=== PATIENT | female | born 1950 | race African-American/Black ===

== ENCOUNTER 2018-11-19 11:05 | Inpatient (IN) | payer OTHER ==
--- NOTE | 2018-11-19 11:13 | PDOC ---
History of Present Illness <Felicita Harrell - Last Filed: 11/19/18 15:06> - History of Present Illness Initial Comments: 11/19/18 11:44 Ms. Trevino is a 68 yo female w/ pmh of GERD, PVD, DMII, HTN, Left sided BKA, ESRD (on dialysis MWF, through R sided fistula, due today) who presents for evaluation of 1 day history of R lower back pain with associated nausea and vomiting. Patient reports she was in her normal state of health yesterday however has had multiple vomiting episodes of clear liquids. Patient still creates urine. Denies any other associated symptom. The patient denies chest pain, shortness of breath, headache and dizziness. Denies fever, chills, diarrhea and constipation. Denies dysuria, frequency, urgency and hematuria. <Pasquale Altamirano - Last Filed: 11/19/18 15:37> - General Stated Complaint: Nausea/Vomiting Time Seen by Provider: 11/19/18 11:12 Past History <Felicita Harrell - Last Filed: 11/19/18 15:06> - Past Medical History Anemia: Yes Diabetes: Yes GI Disorders: Yes HTN: Yes - Suicide/Smoking/Psychosocial Hx Smoking History: Unknown if ever smoked <Pasquale Altamirano - Last Filed: 11/19/18 15:37> - Past Medical History Allergies/Adverse Reactions: Allergies Allergy/AdvReac Type Severity Reaction Status Date / Time cephalexin [From Keflex] Allergy Intermediate Hives Verified 11/19/18 11:43 clindamycin Allergy Intermediate Itching Verified 11/19/18 11:43 gatifloxacin [From Tequin] Allergy Intermediate Hives Verified 11/19/18 11:43 levofloxacin [From Levaquin] Allergy Intermediate Hives Verified 11/19/18 11:43 penicillamine Allergy Intermediate Hives Verified 11/19/18 11:43 vancomycin Allergy Intermediate Hives Verified 11/19/18 11:43 Home Medications: Ambulatory Orders Acetaminophen 650 mg PO ASDIR 11/19/18 Acetaminophen [Tylenol] 650 mg PO QID PRN 11/19/18 Clopidogrel Bisulfate [Plavix] 75 mg PO DAILY 11/19/18 Gentamicin 0.1% Ointment [Garamycin 0.1% Ointment -] 1 applic TP DAILY 11/19/18 Pantoprazole Sodium [Protonix -] 20 mg PO DAILY 11/19/18 Polyethylene Glycol 3350 [Miralax (For Daily Use) -] 17 gm PO DAILY 11/19/18 Review of Systems - Review of Systems Comments:: 11/19/18 12:17 GENERAL/CONSTITUTIONAL: No fever or chills. No weakness. HEAD, EYES, EARS, NOSE AND THROAT: No change in vision. No ear pain or discharge. No sore throat. CARDIOVASCULAR: No chest pain or shortness of breath RESPIRATORY: No cough, wheezing, or hemoptysis. GASTROINTESTINAL: +N/V as described. No diarrhea or constipation. GENITOURINARY: No dysuria, frequency, or change in urination. MUSCULOSKELETAL: No joint or muscle swelling or pain. No neck or back pain. SKIN: No rash NEUROLOGIC: No headache, vertigo, loss of consciousness, or change in strength/ sensation. ENDOCRINE: No increased thirst. No abnormal weight change HEMATOLOGIC/LYMPHATIC: No anemia, easy bleeding, or history of blood clots. ALLERGIC/IMMUNOLOGIC: No hives or skin allergy. <Pasquale Altamirano - Last Filed: 11/19/18 15:37> *Physical Exam - Vital Signs Last Vital Signs Temp Pulse Resp BP Pulse Ox 97.8 F 105 H 16 193/87 H 99 11/19/18 11:44 11/19/18 11:44 11/19/18 11:44 11/19/18 11:44 11/19/18 11:44 <Felicita Harrell - Last Filed: 11/19/18 15:06> - Physical Exam Comments: 11/19/18 12:18 GENERAL: +Patient actively vomiting. Awake, alert, and fully oriented, in no acute distress HEAD: No signs of trauma, normocephalic, atraumatic EYES: PERRLA, EOMI, sclera anicteric, conjunctiva clear ENT: Auricles normal inspection, hearing grossly normal, nares patent, oropharynx clear without exudates. Moist mucosa NECK: Normal ROM, supple, no lymphadenopathy, JVD, or masses LUNGS: No distress, speaks full sentences, clear to auscultation bilaterally HEART: Regular rate and rhythm, normal S1 and S2, no murmurs, rubs or gallops, peripheral pulses normal and equal bilaterally. ABDOMEN: +R flank TTP. Soft, nontender abdomen, normoactive bowel sounds. No guarding, no rebound. No masses EXTREMITIES: Normal inspection, Normal range of motion, no edema. No clubbing or cyanosis. NEUROLOGICAL: Cranial nerves II through XII grossly intact. Normal speech, normal gait, no focal sensorimotor deficits SKIN: Warm, Dry, normal turgor, no rashes or lesions noted. <Pasquale Altamirano - Last Filed: 11/19/18 15:37> ED Treatment Course - LABORATORY CBC & Chemistry Diagram: 11/19/18 12:19 11/19/18 12:19 - ADDITIONAL ORDERS Additional order review: Laboratory Results 11/19/18 11/19/18 11/19/18 12:32 12:23 12:19 Sodium 137 Potassium 3.7 Chloride 98 Carbon Dioxide 26 Anion Gap 13 BUN 38.1 H Creatinine 5.5 H Est GFR (CKD-EPI)AfAm 8.48 Est GFR (CKD-EPI)NonAf 7.31 POC Glucometer 210 Random Glucose 208 H Calcium 9.9 Total Bilirubin 0.4 AST 13 L ALT 11 L Alkaline Phosphatase 138 H Total Protein 8.1 Albumin 3.8 Urine Color Yellow Urine Appearance Clear Urine pH >= 9.0 H Ur Specific [place] 1.011 Urine Protein 3+ H Urine Glucose (UA) Trace Urine Ketones Negative Urine Blood Trace Urine Nitrite Negative Urine Bilirubin Negative Urine Urobilinogen 0.2 Ur Leukocyte Esterase 2+ H Urine WBC (Auto) 16 Urine RBC (Auto) 4 Urine Casts (Auto) 4 U Pathogenic Cast Auto No Result Required. U Epithel Cells (Auto) 7.6 U Sm Round Cell (Auto) None seen Urine Crystals (Auto) No Result Required. Urine Bacteria (Auto) 103.8 Urine Yeast (Auto) No Result Required. 11/19/18 11/19/18 12:23 12:19 RBC 3.31 L MCV 95.2 MCHC 32.9 RDW 17.9 H MPV 8.0 D Neutrophils % 91.0 H D Lymphocytes % 6.2 L D Monocytes % 2.1 L Eosinophils % 0.0 D Basophils % 0.7 POC Glucometer 210 - Medications Given in the ED: ED Medications Discontinued Medications Generic Name Dose Route Start Last Admin Trade Name Freq PRN Reason Stop Dose Admin Acetaminophen 975 mg 11/19/18 12:08 11/19/18 14:48 Tylenol - PO 11/19/18 12:09 Not Given ONCE ONE Sodium Chloride 250 mls @ 1,000 mls/hr 11/19/18 14:29 11/19/18 14:32 Normal Saline - IV 11/19/18 14:43 1,000 mls/hr ASDIR STA Administration Ondansetron HCl 4 mg 11/19/18 12:04 11/19/18 12:35 Zofran Injection IVPUSH 11/19/18 12:05 4 mg ONCE ONE Administration <Felicita Harrell - Last Filed: 11/19/18 15:06> - LABORATORY CBC & Chemistry Diagram: 11/19/18 12:19 11/19/18 12:19 <Pasquale Altamirano - Last Filed: 11/19/18 15:37> Medical Decision Making - Medical Decision Making 11/19/18 15:06 Case d/w Dr. Mckeon via phone, as patient has multiple drug allergies. Recommended one dose of meropenem and monitor patient closely for reaction. He will evaluate as well. <Felicita Harrell - Last Filed: 11/19/18 15:06> - Medical Decision Making 11/19/18 13:09 Ms. Trevino is a 68 yo female w/ pmh as described who presents for evaluation of N/V w/ R flank pain concerning for abdominal process vs. infection vs. ACS. Patient evaluation significant for UTI as below. Given patient's allergies ID consulted regarding ABX administration. Patient will be admitted for ABX and further evaluation. 11/19/18 14:15 ID Paged. 11/19/18 14:29 Discussed patient with Renal who requested 250cc bolus NS and will manage dialysis while in hospital. 11/19/18 15:36 Renal imaging requested by Nephrology to r/o abscess. Order placed for renal US. Laboratory Results - last 24 hr 11/19/18 11/19/18 11/19/18 12:19 12:19 12:23 WBC 9.4 RBC 3.31 L Hgb 10.4 L Hct 31.5 L D MCV 95.2 MCH 31.3 MCHC 32.9 RDW 17.9 H Plt Count 348 D MPV 8.0 D Absolute Neuts (auto) 8.6 H Neutrophils % 91.0 H D Lymphocytes % 6.2 L D Monocytes % 2.1 L Eosinophils % 0.0 D Basophils % 0.7 Nucleated RBC % 0 Sodium 137 Potassium 3.7 Chloride 98 Carbon Dioxide 26 Anion Gap 13 BUN 38.1 H Creatinine 5.5 H Est GFR (CKD-EPI)AfAm 8.48 Est GFR (CKD-EPI)NonAf 7.31 POC Glucometer 210 Random Glucose 208 H Calcium 9.9 Total Bilirubin 0.4 AST 13 L ALT 11 L Alkaline Phosphatase 138 H Total Protein 8.1 Albumin 3.8 Urine Color Urine Appearance Urine pH Ur Specific [place] Urine Protein Urine Glucose (UA) Urine Ketones Urine Blood Urine Nitrite Urine Bilirubin Urine Urobilinogen Ur Leukocyte Esterase Urine WBC (Auto) Urine RBC (Auto) Urine Casts (Auto) U Pathogenic Cast Auto U Epithel Cells (Auto) U Sm Round Cell (Auto) Urine Crystals (Auto) Urine Bacteria (Auto) Urine Yeast (Auto) 11/19/18 12:32 WBC RBC Hgb Hct MCV MCH MCHC RDW Plt Count MPV Absolute Neuts (auto) Neutrophils % Lymphocytes % Monocytes % Eosinophils % Basophils % Nucleated RBC % Sodium Potassium Chloride Carbon Dioxide Anion Gap BUN Creatinine Est GFR (CKD-EPI)AfAm Est GFR (CKD-EPI)NonAf POC Glucometer Random Glucose Calcium Total Bilirubin AST ALT Alkaline Phosphatase Total Protein Albumin Urine Color Yellow Urine Appearance Clear Urine pH >= 9.0 H Ur Specific [place] 1.011 Urine Protein 3+ H Urine Glucose (UA) Trace Urine Ketones Negative Urine Blood Trace Urine Nitrite Negative Urine Bilirubin Negative Urine Urobilinogen 0.2 Ur Leukocyte Esterase 2+ H Urine WBC (Auto) 16 Urine RBC (Auto) 4 Urine Casts (Auto) 4 U Pathogenic Cast Auto No Result Required. U Epithel Cells (Auto) 7.6 U Sm Round Cell (Auto) None seen Urine Crystals (Auto) No Result Required. Urine Bacteria (Auto) 103.8 Urine Yeast (Auto) No Result Required. <Pasquale Altamirano - Last Filed: 11/19/18 15:37> *DC/Admit/Observation/Transfer <Felicita Harrell - Last Filed: 11/19/18 15:06> - Discharge Dispostion Decision to Admit order: Yes <Pasquale Altamirano - Last Filed: 11/19/18 15:37> Diagnosis at time of Disposition: UTI (urinary tract infection) Qualifiers: Urinary tract infection type: site unspecified Hematuria presence: without hematuria Qualified Code(s): N39.0 - Urinary tract infection, site not specified
[2018-11-19] MEDS ORDERED: ONDANSETRON 4 MG/2 ML VIAL IVPUSH ONE (12:04)
[2018-11-19] MEDS ORDERED: ACETAMINOPHEN 500 MG TABLET (FP) PO ONE (12:08)
[2018-11-19] MEDS ORDERED: ACETAMINOPHEN 325 MG TABLET (FP) ONE ×2 (12:28→14:34)
[2018-11-19] MEDS ORDERED: ONDANSETRON 4 MG/2 ML VIAL ONE (12:28)
--- NOTE | 2018-11-19 12:29 | PDOC ---
Documentation entered by Deepa Eduardo SCRIBE, acting as scribe for Felicita Harrell MD. Felicita Harrell MD: This documentation has been prepared by the Jayce nguyen Mackenzie, SCRIBE, under my direction and personally reviewed by me in its entirety. I confirm that the documentation accurately reflects all work , treatment, procedures, and medical decision making performed by me. Attending Attestation - Resident Resident Name: EveliaJuan FPasquale - ED Attending Attestation I have performed the following: I have examined & evaluated the patient, The case was reviewed & discussed with the resident, I agree w/resident's findings & plan, Exceptions are as noted - HPI HPI: 68 yo F history GERD, PVD, DM, HTN, ESRD on HD MWF (missed session today) presents with 1 day history of R low back pain with nausea and vomiting. She denies any recent illness, fevers. Vomited multiple times today, clear fluid, nonbilious, nonbloody. - Physicial Exam PE: GENERAL: Awake, alert, and fully oriented, in no acute distress HEAD: No signs of trauma EYES: PERRLA, EOMI, sclera anicteric, conjunctiva clear ENT: Auricles normal inspection, hearing grossly normal, nares patent, oropharynx clear without exudates. Dry mucosa NECK: Normal ROM, supple, no lymphadenopathy, JVD, or masses LUNGS: Breath sounds equal, clear to auscultation bilaterally. No wheezes, and no crackles HEART: Regular rate and rhythm, normal S1 and S2, no murmurs, rubs or gallops ABDOMEN: Soft, nontender, normoactive bowel sounds. No guarding, no rebound. No masses EXTREMITIES: R foot is s/p amputations of toes 1 and 5, well-healed. LLE s/p AKA , well-healed. Remainder of extremities with normal range of motion, no edema. No clubbing or cyanosis. No cords, erythema, or tenderness NEUROLOGICAL: Cranial nerves II through XII grossly intact. Normal speech. Motor and sensation intact SKIN: Warm, Dry, normal turgor, no rashes or lesions noted. - Medical Decision Making Pt with history of ESRD on HD presenting with vomiting. Abd is soft and nontender, however, patient with flank tenderness on R. Afebrile in ED, but appears dehydrated. Will check labs, UA, BGM. Will give antiemetics. If UA is negative, will obtain CT a/p to further evaluate.
[2018-11-19 12:46] LABS: BASO % 0.7 % (0-2.0); HEMATOCRIT 31.5 % (32.4-45.2); HEMOGLOBIN 10.4 GM/dL (10.7-15.3); LYMPH % 6.2 % (8-40); MCH 31.3 pg (25.7-33.7); MCHC 32.9 g/dl (32.0-36.0); MEAN CELL VOLUME 95.2 fl (80-96); MONO % 2.1 % (3.8-10.2); PLATELET COUNT 348 K/MM3 (134-434); RBC 3.31 M/mm3 (3.60-5.2); RDW 17.9 % (11.6-15.6); WHITE BLOOD COUNT 9.4 K/mm3 (4.0-10.0)
[2018-11-19 12:57] LABS: EPI CELLS 7.6 /HPF (0-5/HPF); HYALINE CASTS 4 /lpf (0-8); PH,URINE >= 9.0 (5.0-8.0); URINE APPEARANCE CLEAR; URINE BACTERIA 103.8 /hpf (NEGATIVE); URINE BILIRUBIN NEGATIVE (NEGATIVE); URINE COLOR YELLOW; URINE GLUCOSE (UA) TRACE (NEGATIVE); URINE KETONE NEGATIVE (NEGATIVE); URINE LEUK ESTERASE 2+ (NEGATIVE); URINE NITRITE NEGATIVE (NEGATIVE); URINE PROTEIN 3+ (NEGATIVE); URINE RBC 4 /hpf (0-4); URINE UROBILINOGEN 0.2 mg/dL (0.2-1.0); URINE WBC 16 /hpf (0-5)
[2018-11-19 13:04] LABS: ALBUMIN 3.8 g/dl (3.4-5.0); BILIRUBIN,TOTAL 0.4 mg/dL (0.2-1); BLOOD UREA NITROGEN 38.1 mg/dL (7-18); CALCIUM 9.9 mg/dL (8.5-10.1); CREATININE 5.5 mg/dL (0.55-1.3); POTASSIUM 3.7 mmol/L (3.5-5.1); TOT PROT 8.1 g/dl (6.4-8.2)
[2018-11-19 13:20] LABS: ANISOCYTOSIS 1+; MACROCYTOSIS 1+; PLATELET ESTIMATE NORMAL
[2018-11-19] MEDS ORDERED: SODIUM CHLORIDE 250 ML IV STA (14:29)
[2018-11-19] MEDS ORDERED: MEROPENEM 1 GM in DEXTROSE 5%-WATER 100 ML IVPB ONE (15:05)
[2018-11-19] MEDS ORDERED: MEROPENEM 1 GM VIAL (RESTRICTED TO ID) IVPB ONE (15:21)
--- NOTE | 2018-11-19 15:38 | CONSULT ---
Consult Consult Specialty:: Nephrology Reason for Consultation:: ESRD - History of Present Illness Chief Complaint: right lower back pain History of Present Illness: Pt is a 68 year old female with pmhx of GERD, ESRD, PVD, left bka, and DM who presents to the ER with right lower back pain. She also complains of nausea and vomiting. She last went to HD on Thursday. She denies shortness of breath. She says that she feels dehydrated and has not eaten much. She does make urine. She denies sick contacts. - History Source History Provided By: Patient, Medical Record - Past Medical History Cardio/Vascular: Yes: HTN Renal/: Yes: Renal Failure, Hemodialysis Endocrine: Yes: Diabetes Mellitus - Past Surgical History Past Surgical History: Yes: AV Fistula/Graft - Smoking History Smoking history: Unknown if ever smoked Home Medications - Allergies Allergies/Adverse Reactions: Allergies Allergy/AdvReac Type Severity Reaction Status Date / Time cephalexin [From Keflex] Allergy Intermediate Hives Verified 11/19/18 11:43 clindamycin Allergy Intermediate Itching Verified 11/19/18 11:43 gatifloxacin [From Tequin] Allergy Intermediate Hives Verified 11/19/18 11:43 levofloxacin [From Levaquin] Allergy Intermediate Hives Verified 11/19/18 11:43 penicillamine Allergy Intermediate Hives Verified 11/19/18 11:43 vancomycin Allergy Intermediate Hives Verified 11/19/18 11:43 - Home Medications Home Medications: Ambulatory Orders Acetaminophen 650 mg PO ASDIR 11/19/18 Acetaminophen [Tylenol] 650 mg PO QID PRN 11/19/18 Clopidogrel Bisulfate [Plavix] 75 mg PO DAILY 11/19/18 Gentamicin 0.1% Ointment [Garamycin 0.1% Ointment -] 1 applic TP DAILY 11/19/18 Pantoprazole Sodium [Protonix -] 20 mg PO DAILY 11/19/18 Polyethylene Glycol 3350 [Miralax (For Daily Use) -] 17 gm PO DAILY 11/19/18 Family Disease History - Family Disease History Family History: Denies Review of Systems - Review of Systems Constitutional: reports: Chills, Malaise Eyes: reports: No Symptoms HENT: reports: No Symptoms Neck: reports: No Symptoms Cardiovascular: reports: No Symptoms Respiratory: reports: No Symptoms Gastrointestinal: reports: No Symptoms Genitourinary: denies: Burning Musculoskeletal: reports: Back Pain Neurological: reports: No Symptoms Endocrine: reports: No Symptoms Hematology/Lymphatic: reports: No Symptoms Psychiatric: reports: No Symptoms Physical Exam Vital Signs: Vital Signs Temperature 97.8 F 11/19/18 11:44 Pulse Rate 105 H 11/19/18 11:44 Respiratory Rate 16 11/19/18 11:44 Blood Pressure 193/87 H 11/19/18 11:44 O2 Sat by Pulse Oximetry (%) 99 11/19/18 11:44 Constitutional: Yes: Calm Eyes: Yes: Conjunctiva Clear HENT: Yes: Atraumatic Neck: Yes: Supple Cardiovascular: Yes: S1, S2 Respiratory: Yes: CTA Bilaterally Gastrointestinal: Yes: Soft Renal/: Yes: WNL Musculoskeletal: Yes: Other (left bka) Edema: No Integumentary: Yes: WNL Neurological: Yes: Oriented Psychiatric: Yes: Oriented Labs: CBC, BMP 11/19/18 12:19 11/19/18 12:19 Microbiology Laboratory Tests 11/19/18 11/19/18 12:19 12:32 Sodium 137 Potassium 3.7 BUN 38.1 H Creatinine 5.5 H Ur Leukocyte Esterase 2+ H Problem List - Problems (1) ESRD (end stage renal disease) Code(s): N18.6 - END STAGE RENAL DISEASE (2) UTI (urinary tract infection) Code(s): N39.0 - URINARY TRACT INFECTION, SITE NOT SPECIFIED Qualifiers: Urinary tract infection type: site unspecified Hematuria presence: without hematuria Qualified Code(s): N39.0 - Urinary tract infection, site not specified Assessment/Plan Impression 1. ESRD 2. DM 3. HTN 4. UTI 5. left bka 6. PVD Plan - send urine and blood cultures - ID eval for abs - give 250 bolus of saline - hold off HD today - will dialyze tomorrow - HD 3:15 avf heparin 200 - will need imaging, spoke to er - resume home bp meds and monitor bp
[2018-11-19] MEDS ORDERED: SODIUM CHLORIDE 250 ML IV PRN (15:41)
[2018-11-19 17:58] VITALS: BMI 26.9
[2018-11-19] MEDS: hydrALAZINE HCL 25 MG TABLET (FP) PO SCH (22:09)
[2018-11-19] MEDS: HEPARIN NA (PORCINE) 5,000 UNITS/ML 1ML VIAL SQ SCH (22:09)
--- NOTE | 2018-11-20 02:09 | HOSP ---
Subjective - Review of Symptoms Events since last encounter: Patient noted with bp of 204/96 ( patient takes Amlodipine 10 mg daily and Hydralazine 25 mg TID home meds, however patient did not take any medication due to vomiting) as per floor RN hydralazine 25 mg was given at 2200, will give another dose of hydralazine 25 mg x1, monitor vitals closely. Gen:NAD Cardio: S1/S2 Resp: CTA b/l Adb: soft, NT/ND Neuro: awake,alert A/P HTN -given extra dose of hydralazine 25 mg x1 - monitor vitals closely Subjective: Elevated bp General: Yes: Chills HEENT: No: Head Aches, Visual Changes, Eye Pain, Ear Pain, Dysphasia, Sinus Congestion, Post Nasal Drip, Sore Throat, Other Pulmonary: No: Dyspnea, Cough, Pleuritic Chest Pain, Other Cardiovascular: No: Chest Pain, Palpitations, Orthopnea, Paroxysmal Noc. Dyspnea , Edema, Light Headedness, Other Gastrointestinal: No: Nausea, NOSYM, Vomiting, Abdominal Pain, Diarrhea, Constipation, Melena, Hematochezia, Other Genitourinary: No: Dysuria, NOSYM, Frequency, Incontinence, Hematuria, Retention , Other Musculoskeletal: No: No Symptoms, Back Pain, Crepitus, Decreased ROM, Extremity Pain, Joint Pain, Joint Swelling, Muscle Pain, Muscle Cramps, Muscle Weakness, Other Neurological: No: Weakness, Numbness, Incoordination, Change in speech, Confusion, Seizures, Other Physical Examination Vital Signs: Vital Signs Temperature 98.4 F 11/20/18 01:00 Pulse Rate 105 H 11/20/18 01:00 Respiratory Rate 24 H 11/20/18 01:00 Blood Pressure 207/93 H 11/20/18 01:00 O2 Sat by Pulse Oximetry (%) 96 11/19/18 21:00 Constitutional: Yes: No Distress Eyes: Yes: Conjunctiva Clear, EOM Intact HENT: Yes: Atraumatic, Normocephalic Neck: Yes: WNL, Supple Cardiovascular: Yes: WNL, Regular Rate and Rhythm Respiratory: Yes: WNL, Regular Gastrointestinal: Yes: WNL, Normal Bowel Sounds Musculoskeletal: Yes: WNL Extremities: Yes: WNL Labs: CBC, BMP 11/19/18 12:19 11/19/18 12:19 Hospitalist Encounter Assessment: HTN - give extra dose of hydralazine 25 mg x1 - monitor vitals closely
[2018-11-20] MEDS ORDERED: hydrALAZINE HCL 25 MG TABLET (FP) PO ONE ×2 (04:16→09:22)
[2018-11-20] MEDS: hydrALAZINE HCL 25 MG TABLET (FP) PO SCH ×2 (05:35→13:28)
[2018-11-20] MEDS ORDERED: PT OWN MED DRAWER 7, Y5N ONE ×2 (06:30→18:30)
--- NOTE | 2018-11-20 09:21 | CON.GI ---
Consult Consult Specialty:: GI Referred by:: Dr. Vlad Laws Reason for Consultation:: Nausea/vomiting - History of Present Illness Chief Complaint: nausea, vomiting, dizziness History of Present Illness: 68F admitted through [facility] ER from rehab (S/P Lt. AKA 08/10 and awaiting refitting for prosthesis) for evaluation of nausea and vomiting. Ms. Plasencia explains that she was in her USOH up until yesterday when she began experiencing episodes of nausea, and retching/vomiting (non bilious, non projectile). She was told of her blood pressure being elevated at rehab and it has been significantly elevated during this admission. She denies associated abdominal pain, diarrhea, rectal bleeding, melena. She describes chills and thinks she may have been told of a fever at rehab. She has been afebrile since she has been here. Along with her nausea she complains of dizziness (her head spinning, especially when she sits up or stands up) and blurring of her vision. She denies any change to her medication regimen. She believes that she had a colonoscopy at [facility] last year that was "OK". There is no family history of colorectal cancer or other GI malignancy. - History Source History Provided By: Patient - Past Medical History Cardio/Vascular: Yes: HTN Renal/: Yes: Renal Failure, Hemodialysis (M/W/F) ...: No Endocrine: Yes: Diabetes Mellitus (DM II) - Past Surgical History Past Surgical History: Yes: AV Fistula/Graft (Left arm), (x 1) - Alcohol/Substance Use Hx Alcohol Use: No History of Substance Use: reports: None - Smoking History Smoking history: Never smoked Have you smoked in the past 12 months: No - Social History Usual Living Arrangement: With Spouse ADL: Independent Occupation: on Disability Place of : Other ([employer]) Came to [place]year[place] Age 15 History of Recent Travel: No Home Medications - Allergies Allergies/Adverse Reactions: Allergies Allergy/AdvReac Type Severity Reaction Status Date / Time cephalexin [From Keflex] Allergy Intermediate Hives Verified 11/19/18 11:43 clindamycin Allergy Intermediate Itching Verified 11/19/18 11:43 gatifloxacin [From Tequin] Allergy Intermediate Hives Verified 11/19/18 11:43 levofloxacin [From Levaquin] Allergy Intermediate Hives Verified 11/19/18 11:43 penicillamine Allergy Intermediate Hives Verified 11/19/18 11:43 vancomycin Allergy Intermediate Hives Verified 11/19/18 11:43 - Home Medications Home Medications: Ambulatory Orders Acetaminophen 650 mg PO ASDIR 11/19/18 Acetaminophen [Tylenol] 650 mg PO QID PRN 11/19/18 Amlodipine Besylate 10 mg PO DAILY 11/19/18 Clopidogrel Bisulfate [Plavix] 75 mg PO DAILY 11/19/18 Gentamicin 0.1% Ointment [Garamycin 0.1% Ointment -] 1 applic TP DAILY 11/19/18 Hydralazine HCl 25 mg PO TID 11/19/18 Pantoprazole Sodium [Protonix -] 20 mg PO DAILY 11/19/18 Polyethylene Glycol 3350 [Miralax (For Daily Use) -] 17 gm PO DAILY 11/19/18 Renvela - 1,600 mg PO TID 11/19/18 Family Disease History - Family Disease History Family Disease History: Other: Father (: 84: HTN complications), Mother ( : 86: HTN complications), Brother (1, healthy), Sister (1, healthy), Son (1 , healthy) Other Family History: No family history of colorectal cancer or other GI malignancy Review of Systems - Review of Systems Constitutional: reports: Chills, Fever (states having had fever at rehab) Eyes: reports: Blurred Vision Cardiovascular: denies: Chest Pain Respiratory: denies: Cough, SOB Gastrointestinal: reports: Nausea, Vomiting. denies: Abdominal Pain, Bloating, Constipation, Diarrhea, Dysphagia, Melena, Rectal Bleeding, Vomiting Blood Physical Exam-GI Vital Signs: Vital Signs Temperature 98.1 F 11/20/18 09:30 Pulse Rate 102 H 11/20/18 09:30 Respiratory Rate 20 H 11/20/18 09:30 Blood Pressure 213/92 H 11/20/18 09:30 O2 Sat by Pulse Oximetry (%) 96 11/19/18 09:30 Constitutional: Yes: Calm Eyes: No: Sclera Icterus Cardiovascular: Yes: Tachycardia. No: Murmur Respiratory: Yes: CTA Bilaterally Gastrointestinal Inspection: Yes: Scars (low pelvic surgical scar) ...Auscultate: Yes: Normoactive Bowel Sounds ...Palpate: Yes: Soft. No: Hepatomegaly, Splenomegaly, Tenderness ...Percussion: No: Tympanitic ...Rectal Exam: Yes: Other (No external lesions, no masses, copious enriquez stool in rectal vault, guaiac negative) Extremities: Yes: Other (Left AKA) Edema: No (No RLE edema) Neurological: Yes: Alert, Oriented Labs: CBC, BMP 11/19/18 12:19 11/19/18 12:19 Hepatic Panel Total Bilirubin 0.4 mg/dL (0.2-1) 11/19/18 12:19 AST 13 U/L (15-37) L 11/19/18 12:19 ALT 11 U/L (13-61) L 11/19/18 12:19 Alkaline Phosphatase 138 U/L (45-117) H 11/19/18 12:19 Albumin 3.8 g/dl (3.4-5.0) 11/19/18 12:19 Problem List - Problems (1) Nausea & vomiting Assessment/Plan: No focal findings on abdominal exam Suspect her nausea / vomiting may be secondary to her uncontrolled hypertension. Advised: Patient be transferred to telemetry or ICU setting and have blood pressure controlled Needs evaluation of complaints of bluured visin and dizziness. Hopefully this improves with better control of her blood pressure Further evaluation of UTI diagnosis Zofran was ordered by PMD Ordered AXR (bedside) Code(s): R11.2 - NAUSEA WITH VOMITING, UNSPECIFIED
--- NOTE | 2018-11-20 09:26 | RAPID ---
Physical Examination Vital Signs: Vital Signs Temperature 98.5 F 11/20/18 06:00 Pulse Rate 107 H 11/20/18 06:00 Respiratory Rate 22 H 11/20/18 06:00 Blood Pressure 194/85 H 11/20/18 06:00 O2 Sat by Pulse Oximetry (%) 96 11/19/18 21:00 Findings/Remarks: Rapid Response called overhead as pt found to have a BP of 190/95 with blurry vision. P.E AAOx3 NC/AT CTAB Sinus Tachy NDNT No Lower extremity edema. L BKA Plan: One time dose Hydralazine 25. Procardia 30 per PMD. Zofran. Monitor BP closely-Transfer to Tele PMD contacted and Aware Labs: CBC, BMP 11/19/18 12:19 11/19/18 12:19
[2018-11-20] MEDS: ONDANSETRON 4 MG/2 ML VIAL IVPUSH PRN ×2 (09:31→22:16)
[2018-11-20] MEDS ORDERED: NIFEdipine E.R. 30 MG TABLET (FP) PO ONE (09:45)
[2018-11-20] MEDS ORDERED: amLODIPine BESYLATE 10 MG TABLET (FP) PO SCH (10:00)
[2018-11-20] MEDS ORDERED: POLYETHYLENE GLYCOL 3350 119 GM BTL PO SCH (10:00)
[2018-11-20] MEDS: HEPARIN NA (PORCINE) 5,000 UNITS/ML 1ML VIAL SQ SCH ×2 (10:57→22:14)
[2018-11-20] MEDS: PANTOPRAZOLE 20 MG TABLET (FP) PO SCH (10:57)
[2018-11-20] MEDS: CLOPIDOGREL BISULFATE 75 MG TABLET (FP) PO SCH (10:57)
--- NOTE | 2018-11-20 12:44 | PN ---
Progress Note, Physician History of Present Illness: Pt seen and examined at bedside. She is awake and alert. She says that she feels much better. She denies shortness of breath. She denies nausea or vomiting. - Current Medication List Current Medications: Active Medications Clopidogrel Bisulfate (Plavix -) 75 mg PO DAILY [facility] Last Admin: 11/20/18 10:57 Dose: 75 mg Heparin Sodium (Porcine) (Heparin -) 2,000 unit IVPUSH ONCE ONE Stop: 11/20/18 15:42 Heparin Sodium (Porcine) (Heparin -) 5,000 unit SQ BID [facility] Last Admin: 11/20/18 10:57 Dose: 5,000 unit Hydralazine HCl (Apresoline -) 25 mg PO TID [facility] Last Admin: 11/20/18 05:35 Dose: 25 mg Sodium Chloride (Normal Saline -) 250 mls @ 3,000 mls/hr IV PRN PRN PRN Reason: Hypotension during Dialysis Stop: 11/20/18 15:41 Ondansetron HCl (Zofran Injection) 4 mg IVPUSH Q6H PRN PRN Reason: NAUSEA AND/OR VOMITING Last Admin: 11/20/18 09:31 Dose: 4 mg Pantoprazole Sodium (Protonix -) 20 mg PO DAILY [facility] Last Admin: 11/20/18 10:57 Dose: 20 mg Polyethylene Glycol (Miralax (For Daily Use) -) 17 gm PO DAILY [facility] Last Admin: 11/20/18 09:50 Dose: Not Given - Objective Vital Signs: Vital Signs Temperature 98.5 F 11/20/18 06:00 Pulse Rate 100 H 11/20/18 10:15 Respiratory Rate 18 11/20/18 10:15 Blood Pressure 162/74 11/20/18 10:15 O2 Sat by Pulse Oximetry (%) 96 11/20/18 09:00 Constitutional: Yes: Calm Eyes: Yes: Conjunctiva Clear HENT: Yes: Atraumatic Neck: Yes: Supple Cardiovascular: Yes: S1, S2 Respiratory: Yes: CTA Bilaterally Gastrointestinal: Yes: Normal Bowel Sounds, Soft Genitourinary: Yes: WNL Musculoskeletal: Yes: Other (bka) Edema: No Integumentary: Yes: WNL Neurological: Yes: Oriented Psychiatric: Yes: Oriented Labs: CBC, BMP 11/19/18 12:19 11/19/18 12:19 Problem List - Problems (1) ESRD (end stage renal disease) Code(s): N18.6 - END STAGE RENAL DISEASE (2) UTI (urinary tract infection) Code(s): N39.0 - URINARY TRACT INFECTION, SITE NOT SPECIFIED Qualifiers: Urinary tract infection type: site unspecified Hematuria presence: without hematuria Qualified Code(s): N39.0 - Urinary tract infection, site not specified Assessment/Plan Current Medications Generic Name Dose Route Start Last Admin Trade Name Freq PRN Reason Stop Dose Admin Clopidogrel Bisulfate 75 mg 11/20/18 10:00 11/20/18 10:57 Plavix - PO 75 mg DAILY [facility] Administration Heparin Sodium (Porcine) 2,000 unit 11/20/18 15:41 Heparin - IVPUSH 11/20/18 15:42 ONCE ONE Heparin Sodium (Porcine) 5,000 unit 11/19/18 22:00 11/20/18 10:57 Heparin - SQ 5,000 unit BID [facility] Administration Hydralazine HCl 25 mg 11/19/18 22:00 11/20/18 05:35 Apresoline - PO 25 mg TID [facility] Administration Sodium Chloride 250 mls @ 3,000 mls/hr 11/19/18 15:41 Normal Saline - IV 11/20/18 15:41 PRN PRN Hypotension during Dialysis Ondansetron HCl 4 mg 11/20/18 05:34 11/20/18 09:31 Zofran Injection IVPUSH 4 mg Q6H PRN Administration NAUSEA AND/OR VOMITING Pantoprazole Sodium 20 mg 11/20/18 10:00 11/20/18 10:57 Protonix - PO 20 mg DAILY [facility] Administration Polyethylene Glycol 17 gm 11/20/18 10:00 11/20/18 09:50 Miralax (For Daily Use) - PO Not Given DAILY [facility] Impression 1. ESRD 2. DM 3. HTN 4. UTI 5. left bka 6. PVD Plan - HD today - cont hydralazine and monitor bp - follow cultures - abd per ID - follow renal ultrasound - HD 3:15 avf heparin 2000
--- NOTE | 2018-11-20 13:36 | CON.ID ---
Consult Consult Specialty:: infectious diseases - Past Medical History Cardio/Vascular: Yes: HTN Renal/: Yes: Renal Failure, Hemodialysis (M/W/F) ...: No Endocrine: Yes: Diabetes Mellitus (DM II) - Past Surgical History Past Surgical History: Yes: AV Fistula/Graft (Left arm), (x 1) - Alcohol/Substance Use Hx Alcohol Use: No History of Substance Use: reports: None - Smoking History Smoking history: Never smoked Have you smoked in the past 12 months: No - Social History Usual Living Arrangement: With Spouse ADL: Independent Occupation: on Disability History of Recent Travel: No Home Medications - Allergies Allergies/Adverse Reactions: Allergies Allergy/AdvReac Type Severity Reaction Status Date / Time cephalexin [From Keflex] Allergy Intermediate Hives Verified 11/19/18 11:43 clindamycin Allergy Intermediate Itching Verified 11/19/18 11:43 gatifloxacin [From Tequin] Allergy Intermediate Hives Verified 11/19/18 11:43 levofloxacin [From Levaquin] Allergy Intermediate Hives Verified 11/19/18 11:43 penicillamine Allergy Intermediate Hives Verified 11/19/18 11:43 vancomycin Allergy Intermediate Hives Verified 11/19/18 11:43 - Home Medications Home Medications: Ambulatory Orders Acetaminophen 650 mg PO ASDIR 11/19/18 Acetaminophen [Tylenol] 650 mg PO QID PRN 11/19/18 Amlodipine Besylate 10 mg PO DAILY 11/19/18 Clopidogrel Bisulfate [Plavix] 75 mg PO DAILY 11/19/18 Gentamicin 0.1% Ointment [Garamycin 0.1% Ointment -] 1 applic TP DAILY 11/19/18 Hydralazine HCl 25 mg PO TID 11/19/18 Pantoprazole Sodium [Protonix -] 20 mg PO DAILY 11/19/18 Polyethylene Glycol 3350 [Miralax (For Daily Use) -] 17 gm PO DAILY 11/19/18 Renvela - 1,600 mg PO TID 11/19/18 Family Disease History - Family Disease History Family Disease History: Other: Father (: 84: HTN complications), Mother ( : 86: HTN complications), Brother (1, healthy), Sister (1, healthy), Son (1 , healthy) Other Family History: No family history of colorectal cancer or other GI malignancy Physical Exam Vital Signs: Vital Signs Temperature 98.5 F 11/20/18 06:00 Pulse Rate 100 H 11/20/18 10:15 Respiratory Rate 18 11/20/18 10:15 Blood Pressure 162/74 11/20/18 10:15 O2 Sat by Pulse Oximetry (%) 96 11/20/18 09:00 Labs: CBC, BMP 11/19/18 12:19 11/19/18 12:19
[2018-11-20 15:10] LABS: HEMATOCRIT 32.6 % (32.4-45.2); HEMOGLOBIN 10.7 GM/dL (10.7-15.3); MCH 31.1 pg (25.7-33.7); MCHC 32.7 g/dl (32.0-36.0); MEAN PLT VOLUME 7.8 fl (7.5-11.1); RBC 3.43 M/mm3 (3.60-5.2); RDW 18.4 % (11.6-15.6); WHITE BLOOD COUNT 12.1 K/mm3 (4.0-10.0)
[2018-11-20] MEDS ORDERED: ACETAMINOPHEN 325 MG TABLET (FP) PO PRN (15:13)
--- NOTE | 2018-11-20 15:14 | HP ---
Admitting History and Physical - Primary Care Physician PCP: Mason Laws - Admission History of Present Illness: pt seen/ examined chart reviewed events noted Ms. Trevino is a 68 yo female w/ pmh of GERD, PVD, DMII, HTN, Left sided BKA, ESRD (on dialysis MWF, through R sided fistula, due today) who presents for evaluation of 1 day history of R lower back pain with associated nausea and vomiting. pt transferred to [facility] earlier today - I had spoken to and discussed with Rn-- pt had uncontrolled htn and persistant n/v Meds adjusted Better [facility] also consulted pt currently being dialized feels much better History Source: Patient, Medical Record - Past Medical History Cardiovascular: Yes: HTN Renal/: Yes: Renal Failure, Hemodialysis (M/W/F) ...: No Endocrine: Yes: Diabetes Mellitus (DM II) - Past Surgical History Past Surgical History: Yes: AV Fistula/Graft (Left arm), (x 1) - Smoking History Smoking history: Never smoked Have you smoked in the past 12 months: No - Alcohol/Substance Use Hx Alcohol Use: No History of Substance Use: reports: None - Social History ADL: Independent Occupation: on Disability History of Recent Travel: No Home Medications - Allergies Allergies/Adverse Reactions: Allergies Allergy/AdvReac Type Severity Reaction Status Date / Time cephalexin [From Keflex] Allergy Intermediate Hives Verified 11/19/18 11:43 clindamycin Allergy Intermediate Itching Verified 11/19/18 11:43 gatifloxacin [From Tequin] Allergy Intermediate Hives Verified 11/19/18 11:43 levofloxacin [From Levaquin] Allergy Intermediate Hives Verified 11/19/18 11:43 penicillamine Allergy Intermediate Hives Verified 11/19/18 11:43 vancomycin Allergy Intermediate Hives Verified 11/19/18 11:43 - Home Medications Home Medications: Ambulatory Orders Acetaminophen 650 mg PO ASDIR 11/19/18 Acetaminophen [Tylenol] 650 mg PO QID PRN 11/19/18 Amlodipine Besylate 10 mg PO DAILY 11/19/18 Clopidogrel Bisulfate [Plavix] 75 mg PO DAILY 11/19/18 Gentamicin 0.1% Ointment [Garamycin 0.1% Ointment -] 1 applic TP DAILY 11/19/18 Hydralazine HCl 25 mg PO TID 11/19/18 Pantoprazole Sodium [Protonix -] 20 mg PO DAILY 11/19/18 Polyethylene Glycol 3350 [Miralax (For Daily Use) -] 17 gm PO DAILY 11/19/18 Renvela - 1,600 mg PO TID 11/19/18 Family Disease History - Family Disease History Family Disease History: Other: Father (: 84: HTN complications), Mother ( : 86: HTN complications), Brother (1, healthy), Sister (1, healthy), Son (1 , healthy) Other Family History: No family history of colorectal cancer or other GI malignancy Review of Systems - Review of Systems Constitutional: reports: Malaise, Weakness Eyes: reports: No Symptoms HENT: reports: No Symptoms Neck: reports: No Symptoms Cardiovascular: reports: No Symptoms Respiratory: reports: No Symptoms Gastrointestinal: reports: Nausea, Vomiting Neurological: reports: No Symptoms Psychiatric: reports: No Symptoms Physical Examination Vital Signs: Vital Signs Temperature 98.5 F 11/20/18 14:53 Pulse Rate 101 H 11/20/18 15:00 Respiratory Rate 20 11/20/18 15:00 Blood Pressure 163/89 11/20/18 15:00 O2 Sat by Pulse Oximetry (%) 96 11/20/18 09:00 Constitutional: Yes: No Distress, Calm Eyes: Yes: Conjunctiva Clear Neck: Yes: Supple Cardiovascular: Yes: Regular Rate and Rhythm Respiratory: Yes: Diminished Gastrointestinal: Yes: Soft Extremities: Yes: Amputation Edema: No Neurological: Yes: Alert Psychiatric: Yes: Alert Imaging - Results X-ray: Report Reviewed Problem List - Problems (1) Hypertensive urgency Code(s): I16.0 - HYPERTENSIVE URGENCY (2) ESRD (end stage renal disease) Code(s): N18.6 - END STAGE RENAL DISEASE (3) Nausea & vomiting Code(s): R11.2 - NAUSEA WITH VOMITING, UNSPECIFIED Assessment/Plan Monitor on tele Being dialize Adjust BP Meds discussed with pt Will follow
[2018-11-20] MEDS ORDERED: ACETAMINOPHEN 325 MG TABLET (FP) PO SCH (15:15)
[2018-11-20 15:20] LABS: BLOOD UREA NITROGEN 48.2 mg/dL (7-18); CALCIUM 9.5 mg/dL (8.5-10.1); CREATININE 6.8 mg/dL (0.55-1.3); POTASSIUM 4.1 mmol/L (3.5-5.1)
[2018-11-20 15:23] LABS: PLATELET COUNT 342 K/MM3 (134-434)
[2018-11-20] MEDS ORDERED: HEPARIN NA (PORCINE) 5,000 UNITS/ML 1ML VIAL IVPUSH ONE (15:41)
[2018-11-20] MEDS: SEVELAMER CARBONATE 800 MG TAB (FP) PO SCH (18:11)
[2018-11-20] MEDS: MEROPENEM 500 MG in DEXTROSE 5%-WATER - 100 ML IVPB SCH (19:42)
[2018-11-20 19:43] LABS: BLOOD UREA NITROGEN 10.7 mg/dL (7-18); CREATININE 2.1 mg/dL (0.55-1.3)
[2018-11-20] MEDS ORDERED: hydrALAZINE HCL 25 MG TABLET (FP) PO SCH (22:00)
[2018-11-21] MEDS ORDERED: hydrALAZINE HCL 25 MG TABLET (FP) PO ONE (02:27)
[2018-11-21] MEDS: ONDANSETRON 4 MG/2 ML VIAL IVPUSH PRN ×2 (02:41→20:10)
[2018-11-21] MEDS ORDERED: PT OWN MED DRAWER 7, Y5N ONE ×3 (06:08→17:19)
[2018-11-21] MEDS: hydrALAZINE HCL 50 MG TABLET (FP) PO SCH ×3 (06:20→21:59)
[2018-11-21] MEDS: SEVELAMER CARBONATE 800 MG TAB (FP) PO SCH ×3 (08:32→17:12)
--- NOTE | 2018-11-21 09:06 | PN.GI ---
GI Progress Note Subjective: No acute events BP still labile. elevated this morning She states feeling better after dialysis yesterday AXR revealed fecal retention (patient stated yesterday she has been having daily BM's) Tolerated tea this morning. Overall states feeling a little better - Objective Vital Signs: Vital Signs Temperature 98.7 F 11/21/18 05:00 Pulse Rate 109 H 11/21/18 05:00 Respiratory Rate 21 H 11/21/18 05:00 Blood Pressure 192/93 H 11/21/18 05:00 O2 Sat by Pulse Oximetry (%) 95 11/20/18 21:00 Constitutional: Calm Eyes: No: Sclera Icterus Cardiovascular: Yes: Regular Rate and Rhythm Respiratory: Yes: CTA Bilaterally Gastrointestinal Inspection: No: Distention ...Auscultate: Yes: Normoactive Bowel Sounds ...Palpate: Yes: Soft. No: Hepatomegaly, Splenomegaly ...Percussion: No: Tympanitic Neurological: Yes: Alert Labs: CBC, BMP 11/20/18 14:30 11/20/18 17:40 Problem List - Problems (1) Nausea & vomiting Assessment/Plan: Nausea improved. No further vomiting. Suspect secondary to uncontrolled HTN Continue to monitor Further BP control per PMD Code(s): R11.2 - NAUSEA WITH VOMITING, UNSPECIFIED (2) Fecal retention Assessment/Plan: Increased miralax to 17g BID Code(s): K59.00 - CONSTIPATION, UNSPECIFIED
[2018-11-21] MEDS: PANTOPRAZOLE 20 MG TABLET (FP) PO SCH (09:17)
[2018-11-21] MEDS: HEPARIN NA (PORCINE) 5,000 UNITS/ML 1ML VIAL SQ SCH ×2 (09:17→21:59)
[2018-11-21] MEDS: NIFEdipine E.R 60 MG TABLET (UD) PO SCH (09:18)
[2018-11-21] MEDS: CLOPIDOGREL BISULFATE 75 MG TABLET (FP) PO SCH (09:19)
[2018-11-21] MEDS: GENTAMICIN SO4 0.1% TOPICAL OINTMENT 15 GM/TUBE TUBE TP SCH (09:24)
[2018-11-21] MEDS: POLYETHYLENE GLYCOL 3350 119 GM BTL PO SCH ×2 (11:24→22:00)
[2018-11-21] MEDS ORDERED: SODIUM CHLORIDE 250 ML IV PRN (14:32)
--- NOTE | 2018-11-21 14:32 | PN ---
Progress Note, Physician History of Present Illness: Pt seen and examined at bedside. SHe is awake and alert. She denies nausea or vomiting. - Current Medication List Current Medications: Active Medications Acetaminophen (Tylenol -) 650 mg PO Q6H PRN PRN Reason: PAIN LEVEL 1-5 Clopidogrel Bisulfate (Plavix -) 75 mg PO DAILY [facility] Last Admin: 11/21/18 09:19 Dose: 75 mg Gentamicin Sulfate (Garamycin 0.1% Ointment -) 1 applic TP DAILY [facility] Last Admin: 11/21/18 09:24 Dose: 1 applic Heparin Sodium (Porcine) (Heparin -) 5,000 unit SQ BID [facility] Last Admin: 11/21/18 09:17 Dose: 5,000 unit Hydralazine HCl (Apresoline -) 50 mg PO TID [facility] Last Admin: 11/21/18 06:20 Dose: 50 mg Sodium Chloride (Normal Saline -) 250 mls @ 3,000 mls/hr IV PRN PRN PRN Reason: Hypotension during Dialysis Stop: 11/20/18 15:41 Meropenem 500 mg/ Dextrose 100 mls @ 200 mls/hr IVPB Q24H [facility] Last Admin: 11/20/18 19:42 Dose: 200 mls/hr Nifedipine (Procardia Xl -) 60 mg PO DAILY [facility] Last Admin: 11/21/18 09:18 Dose: 60 mg Ondansetron HCl (Zofran Injection) 4 mg IVPUSH Q4H PRN PRN Reason: NAUSEA AND/OR VOMITING Last Admin: 11/21/18 02:41 Dose: 4 mg Pantoprazole Sodium (Protonix -) 20 mg PO DAILY [facility] Last Admin: 11/21/18 09:17 Dose: 20 mg Polyethylene Glycol (Miralax (For Daily Use) -) 17 gm PO BID [facility] Last Admin: 11/21/18 11:24 Dose: 17 gm Sevelamer Carbonate (Renvela -) 1,600 mg PO TIDCM [facility] Last Admin: 11/21/18 12:12 Dose: 1,600 mg - Objective Vital Signs: Vital Signs Temperature 98.7 F 11/21/18 09:00 Pulse Rate 105 H 11/21/18 11:27 Respiratory Rate 22 H 11/21/18 09:00 Blood Pressure 159/68 11/21/18 11:27 O2 Sat by Pulse Oximetry (%) 95 11/21/18 09:00 Constitutional: Yes: Calm Eyes: Yes: Conjunctiva Clear HENT: Yes: Atraumatic Neck: Yes: Supple Cardiovascular: Yes: S1, S2 Respiratory: Yes: CTA Bilaterally Gastrointestinal: Yes: Soft Genitourinary: Yes: WNL Edema: No Neurological: Yes: Oriented Psychiatric: Yes: Oriented Labs: CBC, BMP 11/20/18 14:30 11/20/18 17:40 Problem List - Problems (1) ESRD (end stage renal disease) Code(s): N18.6 - END STAGE RENAL DISEASE (2) UTI (urinary tract infection) Code(s): N39.0 - URINARY TRACT INFECTION, SITE NOT SPECIFIED Qualifiers: Urinary tract infection type: site unspecified Hematuria presence: without hematuria Qualified Code(s): N39.0 - Urinary tract infection, site not specified Assessment/Plan Current Medications Generic Name Dose Route Start Last Admin Trade Name Freq PRN Reason Stop Dose Admin Acetaminophen 650 mg 11/20/18 15:13 Tylenol - PO Q6H PRN PAIN LEVEL 1-5 Clopidogrel Bisulfate 75 mg 11/20/18 10:00 11/21/18 09:19 Plavix - PO 75 mg DAILY [facility] Administration Gentamicin Sulfate 1 applic 11/21/18 10:00 11/21/18 09:24 Garamycin 0.1% Ointment - TP 1 applic DAILY [facility] Administration Heparin Sodium (Porcine) 5,000 unit 11/19/18 22:00 11/21/18 09:17 Heparin - SQ 5,000 unit BID [facility] Administration Hydralazine HCl 50 mg 11/21/18 06:00 11/21/18 06:20 Apresoline - PO 50 mg TID [facility] Administration Sodium Chloride 250 mls @ 3,000 mls/hr 11/19/18 15:41 Normal Saline - IV 11/20/18 15:41 PRN PRN Hypotension during Dialysis Meropenem 500 mg/ Dextrose 100 mls @ 200 mls/hr 11/20/18 16:00 11/20/18 19:42 IVPB 200 mls/hr Q24H [facility] Administration Nifedipine 60 mg 11/21/18 10:00 11/21/18 09:18 Procardia Xl - PO 60 mg DAILY [facility] Administration Ondansetron HCl 4 mg 11/21/18 02:26 11/21/18 02:41 Zofran Injection IVPUSH 4 mg Q4H PRN Administration NAUSEA AND/OR VOMITING Pantoprazole Sodium 20 mg 11/20/18 10:00 11/21/18 09:17 Protonix - PO 20 mg DAILY [facility] Administration Polyethylene Glycol 17 gm 11/21/18 10:00 11/21/18 11:24 Miralax (For Daily Use) - PO 17 gm BID [facility] Administration Sevelamer Carbonate 1,600 mg 11/20/18 17:30 11/21/18 12:12 Renvela - PO 1,600 mg TIDCM [facility] Administration Impression 1. ESRD 2. DM 3. HTN 4. UTI 5. left bka 6. PVD Plan - HD tomorrow, pt on MWF schedule as outpt - cont hydralazine - cont procardia, can increase if bp not controlled - follow renal ultrasound report - HD 3:15 avf heparin 2000
--- NOTE | 2018-11-21 15:26 | PN ---
Progress Note (short form) - Note Progress Note: feels much better all the follow-ups noted Blood pressure----was evaluated early this morning----medications adjusted The better Nausea--resolved No complaints now Vital Signs Temp 98.7 F 11/21/18 09:00 Pulse 107 H 11/21/18 14:30 Resp 22 H 11/21/18 09:00 BP 156/78 11/21/18 14:30 Pulse Ox 95 11/21/18 09:00 Intake & Output 11/20/18 11/21/18 11/21/18 23:59 11:59 23:59 Intake Total 320 Output Total 50 Balance 270 Intake: Oral 320 Output: Emesis 50 Other: Voiding Method Diaper Diaper # Unmeasured Voids Void 1 Bowel Movement Yes # Bowel Movements 1 Active Medications Acetaminophen (Tylenol -) 650 mg PO Q6H PRN PRN Reason: PAIN LEVEL 1-5 Clopidogrel Bisulfate (Plavix -) 75 mg PO DAILY [facility] Last Admin: 11/21/18 09:19 Dose: 75 mg Gentamicin Sulfate (Garamycin 0.1% Ointment -) 1 applic TP DAILY [facility] Last Admin: 11/21/18 09:24 Dose: 1 applic Heparin Sodium (Porcine) (Heparin -) 5,000 unit SQ BID [facility] Last Admin: 11/21/18 09:17 Dose: 5,000 unit Hydralazine HCl (Apresoline -) 50 mg PO TID [facility] Last Admin: 11/21/18 14:41 Dose: 50 mg Sodium Chloride (Normal Saline -) 250 mls @ 3,000 mls/hr IV PRN PRN PRN Reason: Hypotension during Dialysis Stop: 11/20/18 15:41 Meropenem 500 mg/ Dextrose 100 mls @ 200 mls/hr IVPB Q24H [facility] Last Admin: 11/20/18 19:42 Dose: 200 mls/hr Sodium Chloride (Normal Saline -) 250 mls @ 3,000 mls/hr IV PRN PRN PRN Reason: Hypotension during Dialysis Stop: 11/22/18 14:32 Nifedipine (Procardia Xl -) 60 mg PO DAILY [facility] Last Admin: 11/21/18 09:18 Dose: 60 mg Ondansetron HCl (Zofran Injection) 4 mg IVPUSH Q4H PRN PRN Reason: NAUSEA AND/OR VOMITING Last Admin: 11/21/18 02:41 Dose: 4 mg Pantoprazole Sodium (Protonix -) 20 mg PO DAILY [facility] Last Admin: 11/21/18 09:17 Dose: 20 mg Polyethylene Glycol (Miralax (For Daily Use) -) 17 gm PO BID [facility] Last Admin: 11/21/18 11:24 Dose: 17 gm Sevelamer Carbonate (Renvela -) 1,600 mg PO TIDCM [facility] Last Admin: 11/21/18 12:12 Dose: 1,600 mg CBC, BMP 11/20/18 14:30 11/20/18 17:40 Microbiology 11/19/18 12:32 Urine Culture - Final Urine - Urine Clean Catch Lactobacillus Species Physical Examination Constitutional: Yes: No Distress, Calm Eyes: Yes: Conjunctiva Clear Neck: Yes: Supple Cardiovascular: Yes: Regular Rate and Rhythm Respiratory: Yes: Diminished Gastrointestinal: Yes: Soft Extremities: Yes: Amputation Edema: No Neurological: Yes: Alert Psychiatric: Yes: Alert Imaging - Results X-ray: Report Reviewed Assessment/Plan much better Monitor blood pressure Continue present care Dialysis tomorrow If stable--- consider discharge after dialysis tomorrow Problem List - Problems (1) Hypertensive urgency Code(s): I16.0 - HYPERTENSIVE URGENCY (2) ESRD (end stage renal disease) Code(s): N18.6 - END STAGE RENAL DISEASE (3) Nausea & vomiting Code(s): R11.2 - NAUSEA WITH VOMITING, UNSPECIFIED
[2018-11-21] MEDS: MEROPENEM 500 MG in DEXTROSE 5%-WATER - 100 ML IVPB SCH (16:46)
[2018-11-22] MEDS: hydrALAZINE HCL 50 MG TABLET (FP) PO SCH ×2 (05:23→16:21)
[2018-11-22] MEDS ORDERED: PT OWN MED DRAWER 7, Y5N ONE (08:44)
[2018-11-22] MEDS: SEVELAMER CARBONATE 800 MG TAB (FP) PO SCH ×3 (08:48→17:32)
[2018-11-22] MEDS: HEPARIN NA (PORCINE) 5,000 UNITS/ML 1ML VIAL SQ SCH (08:59)
[2018-11-22] MEDS: PANTOPRAZOLE 20 MG TABLET (FP) PO SCH (09:00)
[2018-11-22] MEDS: POLYETHYLENE GLYCOL 3350 119 GM BTL PO SCH (09:00)
[2018-11-22] MEDS: GENTAMICIN SO4 0.1% TOPICAL OINTMENT 15 GM/TUBE TUBE TP SCH (09:00)
[2018-11-22] MEDS: NIFEdipine E.R 60 MG TABLET (UD) PO SCH (09:01)
[2018-11-22] MEDS: CLOPIDOGREL BISULFATE 75 MG TABLET (FP) PO SCH (09:01)
--- NOTE | 2018-11-22 09:39 | EKG ---
Test Reason : Blood Pressure : / mmHG Vent. Rate : 102 BPM Atrial Rate : 102 BPM P-R Int : 188 ms QRS Dur : 090 ms QT Int : 370 ms P-R-T Axes : 062 -19 134 degrees QTc Int : 482 ms SINUS TACHYCARDIA POSSIBLE LEFT ATRIAL ENLARGEMENT INFERIOR INFARCT , AGE UNDETERMINED ANTEROLATERAL INFARCT , AGE UNDETERMINED ABNORMAL ECG NO PREVIOUS ECGS AVAILABLE Confirmed by AMBER NICOLE MD ([id number]) on 11/22/2018 9:39:29 AM Referred By: Confirmed By:AMBER NICOLE MD
--- NOTE | 2018-11-22 11:39 | PN ---
Progress Note (short form) - Note Progress Note: GI follow up Patient had bm last night Feels generally improved with BID Miralax 17g Denies abdominal pain Tolerating PO She reports she is being discharged later today Well appearing Labs reviewed Can continue Miralax 17g BID
[2018-11-22 13:44] LABS: HEMATOCRIT 31.8 % (32.4-45.2); HEMOGLOBIN 10.4 GM/dL (10.7-15.3); MCH 31.3 pg (25.7-33.7); MCHC 32.7 g/dl (32.0-36.0); MEAN CELL VOLUME 95.9 fl (80-96); MEAN PLT VOLUME 8.3 fl (7.5-11.1); PLATELET COUNT 307 K/MM3 (134-434); RBC 3.32 M/mm3 (3.60-5.2); RDW 18.2 % (11.6-15.6); WHITE BLOOD COUNT 9.4 K/mm3 (4.0-10.0)
--- NOTE | 2018-11-22 14:02 | PN ---
Progress Note, Physician History of Present Illness: Pt seen and examined at bedside. She is awake and alert. She is tolerating HD. She says she feels better today. - Current Medication List Current Medications: Active Medications Acetaminophen (Tylenol -) 650 mg PO Q6H PRN PRN Reason: PAIN LEVEL 1-5 Clopidogrel Bisulfate (Plavix -) 75 mg PO DAILY [facility] Last Admin: 11/22/18 09:01 Dose: 75 mg Gentamicin Sulfate (Garamycin 0.1% Ointment -) 1 applic TP DAILY [facility] Last Admin: 11/22/18 09:00 Dose: 1 applic Heparin Sodium (Porcine) (Heparin -) 5,000 unit SQ BID [facility] Last Admin: 11/22/18 08:59 Dose: 5,000 unit Hydralazine HCl (Apresoline -) 50 mg PO TID [facility] Last Admin: 11/22/18 05:23 Dose: 50 mg Sodium Chloride (Normal Saline -) 250 mls @ 3,000 mls/hr IV PRN PRN PRN Reason: Hypotension during Dialysis Stop: 11/20/18 15:41 Meropenem 500 mg/ Dextrose 100 mls @ 200 mls/hr IVPB Q24H [facility] Last Admin: 11/21/18 16:46 Dose: Not Given Sodium Chloride (Normal Saline -) 250 mls @ 3,000 mls/hr IV PRN PRN PRN Reason: Hypotension during Dialysis Stop: 11/22/18 14:32 Nifedipine (Procardia Xl -) 60 mg PO DAILY [facility] Last Admin: 11/22/18 09:01 Dose: 60 mg Ondansetron HCl (Zofran Injection) 4 mg IVPUSH Q4H PRN PRN Reason: NAUSEA AND/OR VOMITING Last Admin: 11/21/18 20:10 Dose: 4 mg Pantoprazole Sodium (Protonix -) 20 mg PO DAILY [facility] Last Admin: 11/22/18 09:00 Dose: 20 mg Polyethylene Glycol (Miralax (For Daily Use) -) 17 gm PO BID [facility] Last Admin: 11/22/18 09:00 Dose: 17 gm Sevelamer Carbonate (Renvela -) 1,600 mg PO TIDCM [facility] Last Admin: 11/22/18 13:57 Dose: Not Given - Objective Vital Signs: Vital Signs Temperature 98.2 F 11/22/18 12:15 Pulse Rate 91 H 11/22/18 12:50 Respiratory Rate 18 11/22/18 12:50 Blood Pressure 148/66 11/22/18 12:50 O2 Sat by Pulse Oximetry (%) 98 11/22/18 09:00 Constitutional: Yes: Calm Eyes: Yes: Conjunctiva Clear HENT: Yes: Atraumatic Neck: Yes: Supple Cardiovascular: Yes: S1, S2 Respiratory: Yes: CTA Bilaterally Gastrointestinal: Yes: Soft Genitourinary: Yes: WNL Musculoskeletal: Yes: Other (bka) Edema: No Neurological: Yes: Oriented Psychiatric: Yes: Oriented Labs: CBC, BMP 11/22/18 12:25 11/20/18 17:40 Problem List - Problems (1) ESRD (end stage renal disease) Code(s): N18.6 - END STAGE RENAL DISEASE (2) UTI (urinary tract infection) Code(s): N39.0 - URINARY TRACT INFECTION, SITE NOT SPECIFIED Qualifiers: Urinary tract infection type: site unspecified Hematuria presence: without hematuria Qualified Code(s): N39.0 - Urinary tract infection, site not specified Assessment/Plan Current Medications Generic Name Dose Route Start Last Admin Trade Name Freq PRN Reason Stop Dose Admin Acetaminophen 650 mg 11/20/18 15:13 Tylenol - PO Q6H PRN PAIN LEVEL 1-5 Clopidogrel Bisulfate 75 mg 11/20/18 10:00 11/22/18 09:01 Plavix - PO 75 mg DAILY [facility] Administration Gentamicin Sulfate 1 applic 11/21/18 10:00 11/22/18 09:00 Garamycin 0.1% Ointment - TP 1 applic DAILY [facility] Administration Heparin Sodium (Porcine) 5,000 unit 11/19/18 22:00 11/22/18 08:59 Heparin - SQ 5,000 unit BID [facility] Administration Hydralazine HCl 50 mg 11/21/18 06:00 11/22/18 05:23 Apresoline - PO 50 mg TID [facility] Administration Sodium Chloride 250 mls @ 3,000 mls/hr 11/19/18 15:41 Normal Saline - IV 11/20/18 15:41 PRN PRN Hypotension during Dialysis Meropenem 500 mg/ Dextrose 100 mls @ 200 mls/hr 11/20/18 16:00 11/21/18 16:46 IVPB Not Given Q24H [facility] Sodium Chloride 250 mls @ 3,000 mls/hr 11/21/18 14:32 Normal Saline - IV 11/22/18 14:32 PRN PRN Hypotension during Dialysis Nifedipine 60 mg 11/21/18 10:00 11/22/18 09:01 Procardia Xl - PO 60 mg DAILY [facility] Administration Ondansetron HCl 4 mg 11/21/18 02:26 11/21/18 20:10 Zofran Injection IVPUSH 4 mg Q4H PRN Administration NAUSEA AND/OR VOMITING Pantoprazole Sodium 20 mg 11/20/18 10:00 11/22/18 09:00 Protonix - PO 20 mg DAILY [facility] Administration Polyethylene Glycol 17 gm 11/21/18 10:00 11/22/18 09:00 Miralax (For Daily Use) - PO 17 gm BID [facility] Administration Sevelamer Carbonate 1,600 mg 11/20/18 17:30 11/22/18 13:57 Renvela - PO Not Given TIDCM [facility] Impression 1. ESRD 2. DM 3. HTN 4. UTI 5. left bka 6. PVD 7. right side hydro Plan - HD today - bp improving - pt has HD set up as outpt, she is on a MWF schedule - cont procardia, can increase if bp not controlled - right side hydro on ultrasound - HD 3:15 avf heparin 1999
--- NOTE | 2018-11-22 14:54 | DS ---
Physical Examination Vital Signs: Vital Signs Temperature 98.2 F 11/22/18 12:15 Pulse Rate 94 H 11/22/18 14:20 Respiratory Rate 18 11/22/18 14:20 Blood Pressure 149/73 11/22/18 14:20 O2 Sat by Pulse Oximetry (%) 98 11/22/18 09:00 Findings/Remarks: feels good no complains being dialyzed eating well n/v resolved Constitutional: Yes: No Distress, Calm Eyes: Yes: Conjunctiva Clear Neck: Yes: Supple Cardiovascular: Yes: Regular Rate and Rhythm Respiratory: Yes: Diminished Gastrointestinal: Yes: Soft, Abdomen, Obese Extremities: Yes: Amputation Edema: No Neurological: Yes: Alert Psychiatric: Yes: Alert Labs: CBC, BMP 11/22/18 12:25 11/20/18 17:40 Discharge Summary Reason For Visit: UTI Current Active Problems ESRD (end stage renal disease) (Acute) Fecal retention (Acute) Hypertensive urgency (Acute) Nausea & vomiting (Acute) UTI (urinary tract infection) (Acute) Hospital Course: admitted for n/v/ uncontrolled bp and uti treated with abx bp meds adjustedmuch better u/c - Lactobacillus stable d/c back to long term today meds reconcilled off abx discussed with i/d also Condition: Improved - Instructions Disposition: [facility] - Home Medications Comprehensive Discharge Medication List: Ambulatory Orders Acetaminophen [Tylenol] 650 mg PO QID PRN 11/19/18 Clopidogrel Bisulfate [Plavix] 75 mg PO DAILY 11/19/18 Gentamicin 0.1% Ointment [Garamycin 0.1% Ointment -] 1 applic TP DAILY 11/19/18 Pantoprazole Sodium [Protonix -] 20 mg PO DAILY 11/19/18 Polyethylene Glycol 3350 [Miralax 119 gm Btl -] 17 gm PO DAILY 11/19/18 Renvela - 1,600 mg PO TID 11/19/18 Nifedipine ER [Procardia XL -] 60 mg PO DAILY tab.er.[id number] 11/22/18 hydrALAZINE HCL [Apresoline -] 50 mg PO TID tablet 11/22/18
[2018-11-22] MEDS: MEROPENEM 500 MG in DEXTROSE 5%-WATER - 100 ML IVPB SCH (16:21)
[2018-11-22 18:25] VITALS: BP 116/55; PULSE 92; TEMP 98.6
--- NOTE | 2018-11-23 10:35 | PN ---
Progress Note, Physician History of Present Illness: stable doing well - Objective Vital Signs: Vital Signs Temperature 98.6 F 11/22/18 18:18 Pulse Rate 92 H 11/22/18 18:18 Respiratory Rate 18 11/22/18 18:18 Blood Pressure 116/55 L 11/22/18 18:18 O2 Sat by Pulse Oximetry (%) 98 11/22/18 09:00 Constitutional: Yes: No Distress, Calm Cardiovascular: Yes: Regular Rate and Rhythm Respiratory: Yes: Regular, CTA Bilaterally Gastrointestinal: Yes: Normal Bowel Sounds, Soft Musculoskeletal: Yes: WNL Extremities: Yes: Other Neurological: Yes: Alert, Oriented Psychiatric: Yes: Alert, Oriented Labs: CBC, BMP 11/22/18 12:25 11/20/18 17:40 Assessment/Plan ESRD (end stage renal disease) (Acute) Fecal retention (Acute) Hypertensive urgency (Acute) Nausea & vomiting (Acute) UTI (urinary tract infection) (Acute) plan continue and finish abx nutrition rest as per the team stable
== END 2018-11-22 18:30 | DRG 689 ==
LOC: JER 11:05 → JERBED 13:11 → J7W 16:15 → J4S 11-20 10:16
PROVIDERS: ADMIT Internal Medicine; ATTEND Internal Medicine
DX: N39.0 Urinary tract infection, site not specified (principal); N18.6 End stage renal disease; I12.0 Hypertensive chronic kidney disease with stage 5 chronic kidney disease or end stage renal disease; E11.22 Type 2 diabetes mellitus with diabetic chronic kidney disease; I16.0 Hypertensive urgency; E11.51 Type 2 diabetes mellitus with diabetic peripheral angiopathy without gangrene; Z89.512 Acquired absence of left leg below knee; K21.9 Gastro-esophageal reflux disease without esophagitis; Z99.2 Dependence on renal dialysis; R11.2 Nausea with vomiting, unspecified; K59.00 Constipation, unspecified
CPT/HCPCS: 36415; 74018-TC-FY; 76775-TC; 80048; 80053; 81003; 82565; 82962; 83735; 84520; 85025; 85027; 86803; 87077; 87086; 87340; 87350; 93005; 93010; 99283-25; J1644; J7030